=== PATIENT | female | born 1990 | race Hispanic/Latino ===

== ENCOUNTER 2017-04-13 16:36 | Emergency (ER) | payer OTHER ==
[2017-04-13] MEDS ORDERED: hydrOXYzine 25 MG TAB ONE ×2 (17:25)
== END 2017-04-13 19:00 | disposition home or self-care (01) ==
LOC: ERS 16:36
DX: F41.9 Anxiety disorder, unspecified (principal); F17.210 Nicotine dependence, cigarettes, uncomplicated
CPT/HCPCS: 93005

== ENCOUNTER 2017-04-15 16:56 | Emergency (ER) | payer OTHER | END 2017-04-15 18:42 | disposition home or self-care (01) | LOC: ERS 16:56 | DX: F41.9 Anxiety disorder, unspecified (principal); F17.210 Nicotine dependence, cigarettes, uncomplicated; Z79.899 Other long term (current) drug therapy | CPT/HCPCS: 99283 ==

== ENCOUNTER 2017-04-17 19:07 | Emergency (ER) | payer OTHER ==
[2017-04-17] MEDS ORDERED: Diazepam 2 MG TAB PO SCH (22:15)
[2017-04-18] MEDS ORDERED: Sodium Bicarb 50 MEQ/50 ML Abboject 8.4% SYRINGE ONE
== END 2017-04-17 23:00 | disposition home or self-care (01) ==
LOC: ERS 19:07
DX: F41.9 Anxiety disorder, unspecified (principal); F17.210 Nicotine dependence, cigarettes, uncomplicated; Z79.899 Other long term (current) drug therapy
CPT/HCPCS: 99283